=== PATIENT | male | born 1990 | race Caucasian/White ===

== ENCOUNTER 2018-11-13 12:32 | Emergency (ER) | payer BC ==
[~2018-11-13] VITALS: Ht 188 cm; Wt 102.1 kg
[2018-11-13 12:35] VITALS: BP 151/98
[2018-11-13] MEDS ORDERED: LIDOCAINE 2% TOPICAL JELLY 30GM TUBE. TP ONE (13:38)
[2018-11-13] MEDS ORDERED: HYDROcodone/APAP 5/325MG 1 TAB TABLET PO ONE (13:45)
[2018-11-13] MEDS ORDERED: SMZ/TMP 800/160MG TABLET. PO ONE (13:45)
[2018-11-13] MEDS ORDERED: LIDOCAINE 2% 20 ML VIAL. IJ ONE (13:45)
[2018-11-13] MEDS ORDERED: IBUP800T19 PO (14:19)
[2018-11-13] MEDS ORDERED: HYDR-3165 PO (14:19)
[2018-11-13] MEDS ORDERED: CEPH-264 PO (14:19)
[2018-11-13] MEDS ORDERED: SULF1TAB24 PO (14:19)
--- NOTE | 2018-11-13 14:19 | PHYS DOC ---
Past History Past Medical History: Anxiety, Depression Past Surgical History: Knee Replacement Additional Smoking Information: CHEW TOBACCO Alcohol Use: Occasionally Drug Use: None Adult General Chief Complaint Chief Complaint: ABSCESS HPI HPI Patient is a 27 year old male who presents with complaining of abscess of anal area. Patient states he had painful area in the anal area for the last 4 days and today had drainage of bloody pus with partial improvement of pain. Patient denies fever and chills, history of the same problem, nausea and vomiting, abdominal pain, constipation. Review of Systems Review of Systems Constitutional: Denies fever or chills [] Eyes: Denies change in visual acuity, redness, or eye pain [] HENT: Denies nasal congestion or sore throat [] Respiratory: Denies cough or shortness of breath [] Cardiovascular: No additional information not addressed in HPI [] GI: Denies abdominal pain, nausea, vomiting, bloody stools or diarrhea [] : Denies dysuria or hematuria [] Musculoskeletal: Denies back pain or joint pain [] Integument: Denies rash, reports skin lesions [] Neurologic: Denies headache, focal weakness or sensory changes [] Endocrine: Denies polyuria or polydipsia [] All other systems were reviewed and found to be within normal limits, except as documented in this note. Current Medications Current Medications Current Medications Medications (Trade) Dose Ordered Sig/Joseluis Start Time Stop Time Status Last Admin Dose Admin Acetaminophen/ Hydrocodone Bitart (Lortab 5/325) 1 tab 1X ONCE 11/13/18 13:45 11/13/18 13:46 DC 11/13/18 13:46 1 TAB Lidocaine HCl (Xylocaine 2% Topical 30gm Tube) 30 franchesca STK-MED ONCE 11/13/18 13:38 11/13/18 13:40 DC Trimethoprim/ Sulfamethoxazole (Bactrim Ds) 1 tab 1X ONCE 11/13/18 13:45 11/13/18 13:46 DC 11/13/18 13:45 1 TAB Allergies Allergies Allergies Coded Allergies Type Severity Reaction Last Updated Verified No Known Drug Allergies 11/13/18 No Physical Exam Physical Exam Constitutional: Well developed, well nourished, mild distress, non-toxic appearance. [] HENT: Normocephalic, atraumatic, bilateral external ears normal, oropharynx moist, no oral exudates, nose normal. [] Eyes: PERRLA, EOMI, conjunctiva normal, no discharge. [] Neck: Normal range of motion, no tenderness, supple, no stridor. 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 [] Extremities: No tenderness, no cyanosis, no clubbing, ROM intact, no edema. [] Neurologic: Alert and oriented X 3, normal motor function, normal sensory function, no focal deficits noted. [] Psychologic: Affect normal, judgement normal, mood normal. [] Current Patient Data Vital Signs Vital Signs Date Time Temp Pulse Resp B/P (MAP) Pulse Ox O2 Delivery O2 Flow Rate FiO2 11/13/18 13:46 18 98 Room Air 11/13/18 12:35 98.2 112 EKG EKG [] Radiology/Procedures Radiology/Procedures [] Course & Med Decision Making Course & Med Decision Making Evaluation of patient in ER showed 27-year-old male patient with left penile abscess that was drained in ER without problem. Patient psychiatric to use sitz baths and follow with his primary care physician in 2 or 3 days. Dragon Disclaimer Dragon Disclaimer This electronic medical record was generated, in whole or in part, using a voice recognition dictation system. Incision and Drainage Indication: Left perineal area of abscess Procedure: The patient was positioned appropriately and the skin over the incision site was normal saline. Local anesthesia was given with 2% lidocaine without epinephrine.. An incision was then made over the left perineal area close to anal and small amount of pussy material was expressed. Loculations were remove. The drainage cavity was then irrigated with normal saline. The patient tolerated the procedure well. Complications:none. Departure Departure: Impression: Primary Impression: Perineal abscess Disposition: HOME, SELF-CARE (at 1415) Condition: IMPROVED Referrals: PCP,UNKNOWN (PCP) Patient Instructions: Abscess, Care After, Abscess, Perineal, Community- Associated MRSA Additional Instructions: Keep wound clean and dry Avoid of constipation Drink plenty of liquids Follow-up with your primary care physician in 2-3 days Return to ER if not getting better Scripts Hydrocodone Bit/Acetaminophen (NORCO 5-325 TABLET) 1 Each Tablet 1 TAB PO PRN Q6HRS PRN for PAIN, #14 TAB 0 Refills Prov: LON JACOBSON MD 11/13/18 Cephalexin (KEFLEX) 500 Mg Capsule 2 CAP PO Q12HR for infection, #28 CAP Prov: LON JACOBSON MD 11/13/18 Ibuprofen (IBUPROFEN) 800 Mg Tablet 1 TAB PO TID for pain, #30 TAB Prov: LON JACOBSON MD 11/13/18 Sulfamethoxazole/Trimethoprim (BACTRIM DS TABLET) 1 Each Tablet 1 TAB PO BID for infection, #14 TAB Prov: LON JACOBSON MD 11/13/18 LON JACOBSON MD Nov 13, 2018 14:19
== END 2018-11-13 14:20 | disposition home or self-care (01) ==
LOC: ER 12:32
DX: L02.215 Cutaneous abscess of perineum (principal); F17.220 Nicotine dependence, chewing tobacco, uncomplicated
CPT/HCPCS: 10060; 99283